=== PATIENT | male | born 1995 | race Caucasian/White ===

== ENCOUNTER 2018-05-18 18:48 | Emergency (ER) | payer OTHER ==
[2018-05-18 19:48] LABS: #Basophils 0.1 thou/uL (0.0-0.2); #Eosinphils 0.1 thou/uL (0.0-0.7); #Lymphocytes 1.7 thou/uL (1.20-3.40); #Monocytes 0.7 thou/uL (0.11-0.59); #Neutrophils 4.4 thou/uL (1.40-6.50); %Basophils 0.9 % (0.0-1.0); %Eosinophils 1.5 % (0.0-10.0); %Lymphocytes 24.3 % (21.0-51.0); %Monocytes 10.2 % (0.0-10.0); Mean Corpuscular HGB CONC 33.7 g/dL (32.0-36.0); Mean Corpuscular Hemoglobin 30.8 pg (27.0-31.0); Mean Corpuscular Volume 91.5 fL (78.0-98.0); Mean Platelet Volume 7.4 fL (7.4-10.4); Platelet Count 255 thou/uL (130-400); RBC Distribution Width 11.1 % (11.5-14.5); Red Blood Cell (RBC) Count 4.87 mill/uL (4.70-6.10)
[2018-05-18 20:13] LABS: ALT (SGPT) 19 U/L (8-55); AST (SGOT) 21 U/L (5-34); Albumin 4.4 g/dL (3.5-5.0); Alkaline Phosphatase 73 U/L (40-150); Anion Gap 13 mmol/L (10-20); BUN (Urea Nitrogen) 17 mg/dL (8.9-20.6); Bilirubin, Total 0.6 mg/dL (0.2-1.2); Calc. Creatinine Clearance 0 mL/min (70-130); Calcium 9.4 mg/dL (7.8-10.44); Carbon Dioxide 26 mmol/L (22-29); Chloride 102 mmol/L (98-107); Estimated GFR-MDRD 51; Globulin 3.2 g/dL (2.4-3.5); Glucose 95 mg/dL (70-105); Lipase 20 U/L (8-78); Potassium 4.2 mmol/L (3.5-5.1); Protein, Total 7.6 g/dL (6.0-8.3); Sodium 137 mmol/L (136-145)
[2018-05-18 21:44] LABS: Bilirubin Negative (Negative); Blood, Urine Negative (Negative); Clarity CLEAR (Clear); Glucose, Urine (Dipstick) Negative (Negative); Leukocyte Negative (Negative); Nitrite Negative (Negative); Protein, Urine (Dipstick) Negative (Neg-Trace); Specific Gravity, Urine 1.009 (1.002-1.036); Urobilinogen 0.2 mg/dL (0.2-1.0)
--- NOTE | 2018-05-18 22:26 | ULT ---
ABDOMINAL ULTRASOUND COMPLETE: 05/18/18 HISTORY: 22-year-old male with history of right upper quadrant and left lower quadrant abdominal pain. FINDINGS: There is a small contracted gallbladder. No overt gallstones or gallbladder wall edema or pericholecy stic fluid. Common bile duct 0.4 cm. There are two hyperechoic foci within the liver. One in the left lobe measuring 1.1 x 1.0 x 0.7 cm and one in the right lobe measuring 1.0 x 1.7 x 1.3 cm. Statistica lly these would represent small cavernous hemangiomas. Common bile duct is not dilated. No intrahepat ic ductal dilatation. The visualized pancreas, IVC, aorta are unremarkable. The spleen is borderline in size measuring up to 13.5 cm. No renal hydronephrosis. No abscess or abnormal fluid collection. IMPRESSION: Small contracted gallbladder without ductal dilatation. Two small echogenic foci within the liver, st atistically representing benign cavernous hemangiomas. Borderline sized spleen. POS: [id number]
== END 2018-05-18 22:37 | disposition home or self-care (01) ==
LOC: ERS 18:48
DX: K52.9 Noninfective gastroenteritis and colitis, unspecified (principal); N17.9 Acute kidney failure, unspecified; F17.210 Nicotine dependence, cigarettes, uncomplicated; F41.9 Anxiety disorder, unspecified; E03.9 Hypothyroidism, unspecified; Z79.899 Other long term (current) drug therapy
CPT/HCPCS: 36415; 76700; 80053; 81003; 83690; 85025; 96360; 99406

== ENCOUNTER 2022-01-04 11:22 | Inpatient (IN) | payer OTHER ==
[2022-01-04 12:25] LABS: #Lymphocytes 0.7 thou/uL (1.20-3.40); #Monocytes 0.4 thou/uL (0.11-0.59); #Neutrophils 13.6 thou/uL (1.40-6.50); %Basophils 0.1 % (0.0-1.0); %Eosinophils 0.1 % (0.0-10.0); %Lymphocytes 4.7 % (21.0-51.0); %Monocytes 2.7 % (0.0-10.0); %Neutrophils 92.5 % (42.0-75.0); Hemoglobin 16.5 g/dL (14.0-18.0); Mean Corpuscular HGB CONC 34.6 g/dL (32.0-36.0); Mean Corpuscular Volume 92.4 fL (78.0-98.0); Platelet Count 245 thou/uL (130-400); RBC Distribution Width 11.3 % (11.5-14.5); Red Blood Cell (RBC) Count 5.17 mill/uL (4.70-6.10); White Blood Cell (WBC) Count 14.7 thou/uL (4.8-10.8)
[2022-01-04 12:45] LABS: ALT (SGPT) 41 U/L (8-55); AST (SGOT) 22 U/L (5-34); Alkaline Phosphatase 76 U/L (40-110); Anion Gap 21 mmol/L (10-20); BUN (Urea Nitrogen) 20 mg/dL (8.9-20.6); Bilirubin, Total 0.8 mg/dL (0.2-1.2); CK (CPK) 108 U/L (30-200); Calc. Creatinine Clearance 0 mL/min (70-130); Calcium 10.2 mg/dL (7.8-10.44); Carbon Dioxide 19 mmol/L (22-29); Chloride 100 mmol/L (98-107); Estimated GFR 72; Globulin 3.3 g/dL (2.4-3.5); Glucose 247 mg/dL (70-105); Potassium 3.7 mmol/L (3.5-5.1); Protein, Total 8.3 g/dL (6.0-8.3); Sodium 136 mmol/L (136-145)
[2022-01-04] MEDS ORDERED: Vancomycin 1 GM/200 ML BAG ONE (13:23)
[2022-01-04] MEDS ORDERED: Cefepime 2 GM VIAL ONE (13:23)
[2022-01-04] MEDS ORDERED: Sodium Chloride 0.9% 100 ML ONE (13:23)
[2022-01-04] MEDS ORDERED: Ondansetron ODT 4 MG TAB PO PRN (15:23)
[2022-01-04 15:28] LABS: Lactic Acid 1.9 mmol/L (0.5-2.2)
[2022-01-04 15:37] LABS: Troponin I Less than 0.010 ng/mL (< 0.028)
[2022-01-04] MEDS ORDERED: Acetaminophen 325 MG TAB ONE (15:37)
[2022-01-04 16:31] LABS: SARS-CoV-2 NAA Rapid Test Not Detected (NotDetected)
[2022-01-04] MEDS ORDERED: Dextrose 50% Abboject 50 ML SYRINGE SLOW IVP PRN (16:59)
[2022-01-04] MEDS ORDERED: HumaLOG 300 UNITS/3 ML VIAL SC PRN ×2 (16:59)
[2022-01-04] MEDS ORDERED: Dextrose 5% in Water 1,000 ML IV PRN (16:59)
[2022-01-04 17:47] VITALS: BMI 23.5
[2022-01-04 17:47] LABS: Troponin I Less than 0.010 ng/mL (< 0.028)
[2022-01-04 17:55] LABS: Ferritin 135.81 ng/mL (22-322)
[2022-01-04] MEDS: Sodium Chloride 0.9% 1,000 ML IV SCH (18:13)
[2022-01-04] MEDS: Acetaminophen 325 MG TAB PO PRN (21:43)
[2022-01-04] MEDS ORDERED: Vancomycin 1 GM in Premix Bag 1 BAG IVPB SCH (22:00)
[2022-01-04 22:24] LABS: Amphetamine Not Detected (NotDetected); Barbiturates Screen Not Detected (NotDetected); Benzodiazepine Screen Detected (NotDetected); Cocaine Metabolite Screen Not Detected (NotDetected); Methadone Not Detected (NotDetected); Methamphetamine Not Detected (NotDetected); Opiate Screen Not Detected (NotDetected); Oxycodone Screen Not Detected (NotDetected); Phencyclidine (PCP) Not Detected (NotDetected); THC/Cannabinoid Screen Not Detected (NotDetected); Tricyclic Screen Not Detected (NotDetected)
[2022-01-04] MEDS ORDERED: Loratadine 10 MG TAB PO SCH (23:30)
[2022-01-04] MEDS ORDERED: diphenhydrAMINE 50 MG/ML VIAL IVP SCH (23:30)
[2022-01-04] MEDS ORDERED: Lorazepam 2 MG/ML VIAL SLOW IVP SCH (23:59)
[2022-01-04] MEDS ORDERED: predniSONE 20 MG TAB PO SCH (23:59)
[2022-01-05 00:51] LABS: Bacteria/HPF None Seen HPF (None Seen); Bilirubin Negative (Negative); Blood, Urine Negative (Negative); Clarity Clear (Clear); Glucose, Urine (Dipstick) Normal (Negative); Ketone, Urine Negative (Negative); Leukocyte Negative Leu/uL (Negative); Nitrite Negative (Negative); Protein, Urine (Dipstick) Negative (Neg-Trace); RBC/HPF None Seen HPF (0-3); Specific Gravity, Urine 1.015 (1.002-1.036); Squamous Epithelial None Seen HPF (0-3); Urobilinogen Normal mg/dL (Less than 2); WBC/HPF 0-3 HPF (0-3)
[2022-01-05 00:55] LABS: Urine Culture Reflex No No
[2022-01-05] MEDS ORDERED: Doxycycline 100 MG in Sodium Chloride 0.9% 100 ML IVPB SCH (02:00)
[2022-01-05] MEDS ORDERED: Cefepime 2 GM in Sodium Chloride 0.9% 100 ML IVPB SCH (03:00)
[2022-01-05 05:30] LABS: #Monocytes 0.7 thou/uL (0.11-0.59); #Neutrophils 12.4 thou/uL (1.40-6.50); %Basophils 0.3 % (0.0-1.0); %Eosinophils 0.1 % (0.0-10.0); %Lymphocytes 7.2 % (21.0-51.0); %Monocytes 4.6 % (0.0-10.0); %Neutrophils 87.8 % (42.0-75.0); Hemoglobin 14.5 g/dL (14.0-18.0); Mean Corpuscular HGB CONC 33.3 g/dL (32.0-36.0); Mean Corpuscular Hemoglobin 31.1 pg (27.0-31.0); Mean Corpuscular Volume 93.3 fL (78.0-98.0); Mean Platelet Volume 7.8 fL (7.4-10.4); Platelet Count 217 thou/uL (130-400); RBC Distribution Width 11.6 % (11.5-14.5); Red Blood Cell (RBC) Count 4.68 mill/uL (4.70-6.10); White Blood Cell (WBC) Count 14.2 thou/uL (4.8-10.8)
[2022-01-05 05:45] LABS: Anion Gap 14 mmol/L (10-20); BUN (Urea Nitrogen) 17 mg/dL (8.9-20.6); Calc. Creatinine Clearance 98 mL/min (70-130); Calcium 9.2 mg/dL (7.8-10.44); Carbon Dioxide 23 mmol/L (22-29); Chloride 107 mmol/L (98-107); Estimated GFR 83; Glucose 139 mg/dL (70-105); Potassium 4.9 mmol/L (3.5-5.1); Sodium 139 mmol/L (136-145)
[2022-01-05 05:50] LABS: Hemoglobin A1c 4.9 % (4.0-6.0)
[2022-01-05] MEDS: Sodium Chloride 0.9% 1,000 ML IV SCH (08:34)
[2022-01-05] MEDS: Enoxaparin Sodium 40 MG/0.4 ML SYRINGE SC SCH (09:59)
[2022-01-05] MEDS ORDERED: Levothyroxine Sodium 100 MCG TAB PO SCH (16:00)
[2022-01-05] MEDS: Acetaminophen 325 MG TAB PO PRN (17:56)
[2022-01-05] MEDS ORDERED: Polyethylene Glycol 3350 17 GM Packet PO PRN (20:40)
[2022-01-06 04:58] LABS: Anion Gap 13 mmol/L (10-20); BUN (Urea Nitrogen) 22 mg/dL (8.9-20.6); Calc. Creatinine Clearance 110 mL/min (70-130); Carbon Dioxide 27 mmol/L (22-29); Chloride 105 mmol/L (98-107); Potassium 4.2 mmol/L (3.5-5.1); Sodium 141 mmol/L (136-145)
[2022-01-06 04:59] LABS: Calcium 9.5 mg/dL (7.8-10.44); Estimated GFR 95; Glucose 92 mg/dL (70-105)
[2022-01-06 05:01] LABS: #Basophils 0.1 thou/uL (0.0-0.2); #Eosinphils 0.2 thou/uL (0.0-0.7); #Lymphocytes 3.3 thou/uL (1.20-3.40); #Monocytes 0.8 thou/uL (0.11-0.59); #Neutrophils 4.5 thou/uL (1.40-6.50); %Basophils 0.8 % (0.0-1.0); %Eosinophils 1.9 % (0.0-10.0); %Monocytes 9.6 % (0.0-10.0); %Neutrophils 50.7 % (42.0-75.0); Hemoglobin 14.6 g/dL (14.0-18.0); Mean Corpuscular HGB CONC 33.5 g/dL (32.0-36.0); Mean Corpuscular Hemoglobin 31.1 pg (27.0-31.0); Mean Corpuscular Volume 92.7 fL (78.0-98.0); Mean Platelet Volume 7.6 fL (7.4-10.4); Platelet Count 202 thou/uL (130-400); RBC Distribution Width 11.7 % (11.5-14.5); White Blood Cell (WBC) Count 8.8 thou/uL (4.8-10.8)
[2022-01-06 05:19] LABS: Free Thyroxine Index 1.51 (1.4-3.1); T4 5.4 ug/dL (4.87-11.72); Thyroid Stimulating Hormone 24.4227 uIU/mL (0.35-4.94)
[2022-01-06] MEDS ORDERED: Levothyroxine Sodium 100 MCG TAB PO SCH (06:00)
[2022-01-06 07:22] VITALS: BP 112/63; TEMP 98.3
[2022-01-06] MEDS: Enoxaparin Sodium 40 MG/0.4 ML SYRINGE SC SCH ×2 (07:46→08:47)
[2022-01-06] MEDS: Acetaminophen 325 MG TAB PO PRN (07:46)
[2022-01-07] MEDS ORDERED: Levothyroxine 150 MCG TAB PO SCH (06:00)
[2022-01-08 13:05] LABS: ANA Symphony (Qualitative) Negative (Negative); ANA Symphony (Quantitative) 0.3 Ratio (< 0.7 Negative); dsDNA IgG Antibody 1.1 IU/mL (<10 Negative)
== END 2022-01-06 10:00 | disposition home or self-care (01) | DRG 309 ==
LOC: ERS 11:22 → 2SW 15:23
PROVIDERS: ADMIT Surgery; ATTEND Hospitalist
DX: R00.0 Tachycardia, unspecified (principal); E87.2 Acidosis; N17.9 Acute kidney failure, unspecified; Z20.822 Contact with and (suspected) exposure to COVID-19; R07.9 Chest pain, unspecified; F17.210 Nicotine dependence, cigarettes, uncomplicated; F41.9 Anxiety disorder, unspecified; R00.1 Bradycardia, unspecified; E03.9 Hypothyroidism, unspecified; Z88.1 Allergy status to other antibiotic agents; Z88.8 Allergy status to other drugs, medicaments and biological substances; Z91.041 Radiographic dye allergy status; Z88.5 Allergy status to narcotic agent; Z79.890 Hormone replacement therapy; Z79.899 Other long term (current) drug therapy; Z90.89 Acquired absence of other organs
CPT/HCPCS: 36415; 36416; 71045; 76770; 78451; 80048; 80053; 80306; 81001; 82550; 82728; 83036; 83605; 83880; 84436; 84443; 84479; 84484; 85025; 85379; 85652; 86038; 86140; 86225; 87040; 87086; 87804; 93005; 93010; 93306; 93970; 94760; 96361; 96365; A9540; J0692; J1200; J1650; J3370; J3490; J7050; J7512; Q0162; U0002